=== PATIENT | female | born 1945 | race Caucasian/White ===

== ENCOUNTER 2022-02-13 10:08 | Observation (INO) ==
[~2022-02-13 10:08] MED LIST: *HR* Phenylephrine 10 MG/ML VIAL ONE
[2022-02-13] MEDS ORDERED: Lidocaine -MPF 2% 2 ML VIAL ONE ×2 (10:15)
[2022-02-13] MEDS ORDERED: *HR* Propofol 200 MG/20 ML VIAL IVP ONE (10:16)
[2022-02-13] MEDS ORDERED: CeFAZolin Syr 3,000MG/30 ML 3,000 MG/30 ML SYRINGE IVPB ONE (10:20)
[2022-02-13] MEDS ORDERED: Ringers Solution, Lactated 1,000 ML IVC SCH (10:30)
[2022-02-13] MEDS ORDERED: Famotidine 20 MG/2 ML VIAL IVP ONE (10:50)
[2022-02-13] MEDS ORDERED: *HR* OxyCODONE Immed Rel 5 MG TABLET PO ONE (10:50)
[2022-02-13] MEDS ORDERED: Acetaminophen IV 1,000 MG/100 ML BAG IVPB ONE (10:50)
[2022-02-13] MEDS ORDERED: Ondansetron 4 MG/2 ML VIAL IVP PRN ×2 (10:51→17:51)
[2022-02-13] MEDS ORDERED: *HR* OxyCODONE Immed Rel 5 MG TABLET PO PRN (10:51)
[2022-02-13 10:57] LABS: INR 1.5; Prothrombin Time 16.8 Seconds (9.4-12.1)
[2022-02-13 10:59] LABS: Activated Partial Thrombo Time 37.3 Seconds (26.0-36.0)
[2022-02-13] MEDS ORDERED: *HR* Rocuronium Bromide 50 MG/5 ML VIAL ONE ×2 (11:16→13:04)
[2022-02-13] MEDS ORDERED: *HR* Midazolam HCl 2 MG/2 ML VIAL ONE (11:18)
[2022-02-13] MEDS ORDERED: *HR* FentaNYL (PF) 100 MCG/2 ML VIAL ONE ×2 (11:18→13:41)
[2022-02-13] MEDS ORDERED: Vancomycin 1,000 MG VIAL ONE (11:26)
[2022-02-13] MEDS ORDERED: Lidocaine HCL 4 ML Topical Solution (Laryng-O-Jet Kit Sterile Pak) TP ONE (11:59)
[2022-02-13] MEDS ORDERED: Albumin Human 5% 12.5 GM/250 ML IV.SOLN ONE (12:20)
[2022-02-13] MEDS ORDERED: Sugammadex Sodium 200 MG/2 ML VIAL IV ONE (15:52)
[2022-02-13] MEDS: *HR* FentaNYL (PF) 100 MCG/2 ML VIAL IVP PRN ×2 (16:39→16:47)
[2022-02-13] MEDS: *HR* Metoprolol 5 MG/5 ML VIAL IVP PRN ×2 (16:43→17:20)
[2022-02-13] MEDS: *HR* HYDROmorphone PF 0.5 MG/0.5 ML SYRINGE IVP PRN ×2 (17:20→17:25)
[2022-02-13] MEDS ORDERED: *HR* HYDROcodone/Acet 5/325 mg TABLET PO PRN (17:51)
[2022-02-13] MEDS ORDERED: Naloxone 0.4 MG/ML INJ IVP PRN (17:51)
[2022-02-13] MEDS: Acetaminophen 325 MG TABLET PO SCH ×2 (18:31→23:18)
[2022-02-13] MEDS: tiZANidine 4 MG TABLET PO SCH (20:10)
[2022-02-13] MEDS: ceFAZolin 3,000 MG in 0.9 % Sodium Chloride 100 ML IVPB SCH (20:11)
[2022-02-13] MEDS: *HR* OxyCODONE Immed Rel 5 MG TABLET PO PRN (20:11)
[2022-02-13] MEDS: Ringers Solution, Lactated 1,000 ML IVC SCH (20:20)
[2022-02-14] MEDS: *HR* OxyCODONE Immed Rel 5 MG TABLET PO PRN ×2 (03:50→14:16)
[2022-02-14] MEDS: ceFAZolin 3,000 MG in 0.9 % Sodium Chloride 100 ML IVPB SCH (03:50)
[2022-02-14] MEDS: Acetaminophen 325 MG TABLET PO SCH ×3 (06:31→18:36)
[2022-02-14] MEDS ORDERED: Furosemide 40 MG TABLET PO SCH (09:00)
[2022-02-14] MEDS: Gabapentin 400 MG CAPSULE PO SCH (09:25)
[2022-02-14] MEDS: tiZANidine 4 MG TABLET PO SCH ×3 (09:25→21:25)
[2022-02-14] MEDS: Metoprolol XL (24 HR) Succ 50 MG TAB.ER.24H PO SCH ×2 (09:26→09:35)
[2022-02-14] MEDS: Multivit/Ca/Min/Fe/FA 1 TAB TABLET PO SCH (09:31)
[2022-02-14] MEDS: Ringers Solution, Lactated 1,000 ML IVC SCH ×3 (14:15→21:29)
[2022-02-14] MEDS ORDERED: Ringers Solution, Lactated 1,000 ML IVC ONE (18:26)
[2022-02-14] MEDS ORDERED: *HR* HYDROcodone/Acet 5/325 mg TABLET PO PRN (18:28)
[2022-02-15] MEDS: Acetaminophen 325 MG TABLET PO SCH ×4 (02:08→18:06)
[2022-02-15] MEDS ORDERED: Metoprolol XL (24 HR) Succ 50 MG TAB.ER.24H PO SCH (09:00)
[2022-02-15 09:38] LABS: Hematocrit 33.8 % (35.3-44.9); Hemoglobin 10.8 g/dL (11.5-15.4)
[2022-02-15] MEDS: Gabapentin 400 MG CAPSULE PO SCH (09:57)
[2022-02-15] MEDS: Multivit/Ca/Min/Fe/FA 1 TAB TABLET PO SCH (09:57)
[2022-02-15] MEDS: tiZANidine 4 MG TABLET PO SCH ×2 (09:57→14:34)
[2022-02-15] MEDS: *HR* OxyCODONE Immed Rel 5 MG TABLET PO PRN (09:58)
[2022-02-15] MEDS ORDERED: tiZANidine 4 MG TABLET PO PRN (18:28)
[2022-02-15] MEDS ORDERED: Ringers Solution, Lactated 500 ML IVC ONE (18:28)
[2022-02-15] MEDS ORDERED: Ringers Solution, Lactated 250 ML IVC ONE (18:34)
[2022-02-16] MEDS: Acetaminophen 325 MG TABLET PO SCH ×5 (00:14→22:58)
[2022-02-16] MEDS: *HR* OxyCODONE Immed Rel 5 MG TABLET PO PRN ×4 (00:20→22:58)
[2022-02-16] MEDS: Gabapentin 400 MG CAPSULE PO SCH (08:22)
[2022-02-16] MEDS: Multivit/Ca/Min/Fe/FA 1 TAB TABLET PO SCH (08:23)
[2022-02-16] MEDS ORDERED: Metoprolol XL (24 HR) Succ 25 MG TAB.ER.24H PO SCH (09:00)
[2022-02-16] MEDS ORDERED: Metoprolol XL (24 HR) Succ 25 MG TAB.ER.24H PO ONE (12:06)
[2022-02-16] MEDS ORDERED: Melatonin 3 MG TABLET PO PRN (23:09)
[2022-02-17] MEDS: *HR* OxyCODONE Immed Rel 5 MG TABLET PO PRN (06:12)
[2022-02-17] MEDS: Acetaminophen 325 MG TABLET PO SCH ×2 (06:12→14:21)
[2022-02-17] MEDS: Gabapentin 400 MG CAPSULE PO SCH (08:56)
[2022-02-17] MEDS: Multivit/Ca/Min/Fe/FA 1 TAB TABLET PO SCH (08:56)
[2022-02-17] MEDS ORDERED: Spironolactone 25 MG TABLET PO SCH (09:00)
[2022-02-17] MEDS ORDERED: Metoprolol XL (24 HR) Succ 25 MG TAB.ER.24H PO SCH ×2 (09:00)
[2022-02-17] MEDS ORDERED: Metoprolol XL (24 HR) Succ 50 MG TAB.ER.24H PO SCH (09:00)
[2022-02-17] MEDS ORDERED: tiZANidine 4 MG TABLET PO PRN (09:24)
[2022-02-17] MEDS ORDERED: *HR* HYDROcodone/Acet 5/325 mg TABLET PO PRN (09:24)
[2022-02-17 11:11] VITALS: BP 118/64; PULSE 71; TEMP 97.6; O2SAT 95
== END 2022-02-17 15:20 | disposition home health service (06) ==
LOC: SDCAOSI 10:08 → 4WAOSI 10:08
PROVIDERS: ADMIT Student in an Organized Health Care Education/Training Program; ATTEND Student in an Organized Health Care Education/Training Program